=== PATIENT | female | born 1955 | race African-American/Black ===

== ENCOUNTER 2016-10-19 23:39 | Inpatient (IN) | payer OTHER ==
[~2016-10-19] VITALS: Ht 165.1 cm; Wt 68.0 kg
[2016-10-19 23:45] VITALS: BP 150/85
--- NOTE | 2016-10-20 00:54 | NUR ---
PT TAKEN TO BED 7
--- NOTE | 2016-10-20 00:57 | NUR ---
Dr. Blanchard evaluating patient at bedside.
[2016-10-20] MEDS ORDERED: NACL 0.9% 1,000 ML IV ONE ×2 (01:00→02:30)
[2016-10-20] MEDS ORDERED: KETOROLAC 30 MG/ML VIAL IVP ONE (01:00)
--- NOTE | 2016-10-20 01:05 | NUR ---
61/F c/o left flank pain radiating to left lower abdomen x2 days. Pt also reports hematuria x2 days. Pt sent from PMD office for further evaluation. Pt c/o 8/10 pain, sharp, constant pain. Denies N/V/D. AOX4, ambulatory with steady gait Denies injury or trauma. VSS.
--- NOTE | 2016-10-20 01:07 | NUR ---
PHLEB DRAWING LABS
[2016-10-20 01:14] LABS: HEMATOCRIT 38.8 % (36-48); HEMOGLOBIN 12.2 g/dL (12.0-16.0); MEAN CORPUSCULAR HEMOGLOBIN 23 pg (27-31); MEAN CORPUSCULAR HGB CONC 32 g/dL (33-37); MEAN CORPUSCULAR VOLUME 74 fL (80-94); PLATELET COUNT (AUTO) 379 K/uL (140-450); RED BLOOD CELL COUNT(AUTO) 5.25 MIL/uL (4.20-5.40); RED CELL DISTRIBUTION WIDTH 14.1 % (11.6-13.7)
--- NOTE | 2016-10-20 01:15 | NUR ---
Warm blanket provided. Dimmed lights. All needs addressed. VSS.
[2016-10-20 01:16] LABS: APPEARANCE,URINE CLEAR (CLEAR); BILIRUBIN,URINE NEGATIVE (NEGATIVE); BLOOD, URINE 3+ (NEGATIVE); COLOR,URINE YELLOW (YELLOW); LEUKOCYTE ESTERASE ,URINE NEGATIVE (NEGATIVE); NITRITE, URINE NEGATIVE (NEGATIVE); PROTEIN,URINE NEGATIVE (NEGATIVE); UGLUCOSE NEGATIVE (NEGATIVE); UROBILINOGEN,URINE 0.2 EU/dL (0.2 - 1)
--- NOTE | 2016-10-20 01:26 | NUR ---
Pt taken to CT via w/c.
[2016-10-20 01:27] LABS: ANION GAP 13.7 (8-16); CALCIUM 9.3 mg/dL (8.5-10.1); CREATININE 1.6 mg/dL (0.6-1.3); POTASSIUM 3.7 mmol/L (3.5-5.1)
[2016-10-20 01:27] LABS: BACTERIA,URINE FEW /HPF (None Seen); MUCUS,URINE 4+ /LPF (None Seen); WBC,URINE 0-5 (RARE) /HPF (0-5)
[2016-10-20] MEDS ORDERED: MORPHINE SULFATE 4 MG/ML SYR IVP ONE ×2 (01:30→02:15)
[2016-10-20 01:31] LABS: WHITE BLOOD COUNT (AUTO) 15.1 K/uL (4.8-10.8)
[2016-10-20 01:32] LABS: BAND % (MANUAL) 6 % (0-8); LYMPHOCYTES % (MANUAL) 5 % (20-46); MONOCYTES % (MANUAL) 2 % (5-12); NEUTROPHILS % (MANUAL) 87 (43-65)
[2016-10-20 01:35] LABS: TOTAL BILIRUBIN 0.2 mg/dL (0.0-1.0); TOTAL PROTEIN, SERUM 8.7 g/dL (6.4-8.2)
--- NOTE | 2016-10-20 01:42 | NUR ---
Pt back from CT, ambulated to restroom.
--- NOTE | 2016-10-20 02:16 | NUR ---
Pt c/o returning pain. Dr. Blanchard made aware.
[2016-10-20] MEDS ORDERED: AMLO5TAB PO (02:20)
[2016-10-20] MEDS ORDERED: ESTR1TAB19 PO (02:20)
--- NOTE | 2016-10-20 02:53 | NUR ---
Patient will be admitted to care of Dr. Black. Admited to Med/Surg. Will go to room 112-A. Belongings list completed. Report to Radha DHILLON.
[2016-10-20] MEDS: NACL 0.9% 1,000 ML IV SCH ×2 (02:57→10:55)
[2016-10-20] MEDS ORDERED: MORPHINE SULFATE 4 MG/ML SYR IVP PRN (03:00)
[2016-10-20] MEDS ORDERED: LORazepam 2 MG/ML VIAL IVP PRN (03:00)
[2016-10-20] MEDS ORDERED: ONDANSETRON 4 MG/2 ML VIAL IVP PRN (03:00)
[2016-10-20] MEDS ORDERED: MORPHINE SULFATE 2 MG/ML SYR IVP PRN (03:00)
[2016-10-20] MEDS ORDERED: ACETAMINOPHEN 325 MG TAB PO PRN (03:00)
--- NOTE | 2016-10-20 03:04 | NUR ---
RECEIVED FROM ER PER WHEELCHAIR AWAKE AND ALERT. NO SOB. DENIES PAIN AT THIS TIME. DX. OF KIDNEY STONES. WITH RH #22 IVF SITE. PATENT AND NO INFILTRATION. PT. CARE PLANS DISCUSSED WITH PT AND CALL LIGHT DISCUSSED WITH HER. SKIN INTACT AND NO EDEMA NOTED. RAPID RESPONSE MECHANISM EXPLAINED TO PT. ABLE TO WALK INDEPENDENTLY. ROM X 4. AFEBRILE.
[2016-10-20 03:05] VITALS: BP 133/72
[2016-10-20] MEDS ORDERED: cefTRIAXone 1,000 MG VIAL ONE ×2 (04:02)
--- NOTE | 2016-10-20 04:10 | NUR ---
ROCEPHIN 1000 MG IVP GIVEN ORDERED PER PIGGY BACK RT LEUKOCYTOSIS. PT. MADE AWARE OF IT. NO COMPLAINTS DONE.
--- NOTE | 2016-10-20 06:28 | NUR ---
PT. SLEEPING STILL AT THIS TIME. NO COMPLAINTS OF ANY PAIN THIS SHIFT. CALL LIGHT WITH IN REACH. INDEPENDENT.
--- NOTE | 2016-10-20 07:25 | NUR ---
ENDORSED TO THE AM RN FOR CONTINUITY OF CARE. SLEEPING BUT WAKE UP EASILY WHEN TOUCHED OR CALLED BY NAME.
--- NOTE | 2016-10-20 07:26 | NUR ---
RECEIVED PT REPORT FROM PRICING/SIGNAGE TEAM MEMBER NURSE AT BEDSIDE FOR CONTINUITY OF CARE. INTRODUCED SELF TO PT AND UPDATED BOARD. PT IS AWAKE AND ORIENTED. VS: WNL. PT GOT UP TO USE THE BATHROOM. DENIES PAIN AT THIS TIME. WILL RETURN TO PT'S ROOM WITH MORNING MEDS AND CONTINUE TO MONITOR.
[2016-10-20 08:00] VITALS: BP 131/86
--- NOTE | 2016-10-20 08:09 | NUR ---
PATIENT HAS BEEN SCREENED AND CATEGORIZED MODERATE NUTRITION RISK. PATIENT WILL BE SEEN WITHIN 3-5 DAYS OF ADMISSION. 10/22/16-10/24/[address]
[2016-10-20] MEDS ORDERED: ENOXAPARIN 40 MG/0.4 ML SYR SUBQ SCH (09:00)
[2016-10-20] MEDS ORDERED: ESTRADIOL 1 MG TAB PO SCH (09:00)
[2016-10-20] MEDS ORDERED: amLODIPine 5 MG TAB PO SCH (09:00)
--- NOTE | 2016-10-20 09:10 | NUR ---
ADMINISTERED SCHEDULED MEDS TO PT. TOLERATED WELL. PT IS AWAKE AND SITTING UP FOR BREAKFAST IN BED. DENIES PAIN AT THIS TIME. IV IS RUNNING ON RIGHT HAND 22G NS AT 100ML/HR. NO COMPLAINTS AT THIS TIME. WILL CONTINUE TO MONITOR PT AND ASSESS FOR ANY PAIN.
[2016-10-20] MEDS ORDERED: ACET-5629 PO (09:11)
[2016-10-20] MEDS ORDERED: ACET-1182 PO (09:11)
[2016-10-20] MEDS ORDERED: CEPH250C16 PO (09:12)
--- NOTE | 2016-10-20 10:55 | NUR ---
PT FAMILY AT BEDSIDE. CHANGED IV BAG OF NS. RUNNING AT 100ML/HR IN R HAND, FLUSHED WITH NS. PT DENIES PAIN AT THIS TIME. WILL CONTINUE TO MONITOR FOR SIGNS OF DISTRESS AND PAIN.
--- NOTE | 2016-10-20 11:14 | NUR ---
CM NOTE PER BALBIR Allred COVERING FOR LICENSED PROFESSIONAL COUNSELOR [place]ON[place], REVIEWS SHOULD ONLY BE SENT TO [facility]. FAXED INITIAL REVIEW TO [facility] [phone] LESVIA JAMES [phone]
--- NOTE | 2016-10-20 12:07 | NUR ---
PT FAMILY AT BEDSIDE. PT GOT UP TO USE BATHROOM. PT VOIDED AND URINE SAMPLE COLLECTED. PT'S PAIN WAS 5/10 FLANK AREA. MEDICATED WITH MORPHINE. WILL BE BACK TO REASSESS FOR PAIN RELIEF. PT IS SITTING UP IN BED AND EATING LUNCH. REGULAR DIET. WILL CONTINUE TO MONITOR.
--- NOTE | 2016-10-20 16:00 | NUR ---
PT IS RESTING COMFORTABLY IN BED. PT DENIES PAIN. VS: WNL. PT REQUESTED SALAD, CALLED [facility] AND LEFT MESSAGE TO SEND SALAD TO PT'S ROOM. PT HAS NO OTHER COMPLAINTS AT THIS TIME.
[2016-10-20 16:06] VITALS: BP 112/68
--- NOTE | 2016-10-20 16:38 | NUR ---
JACOB FROM [facility] CALLED. SCHEDULED PT FOR A UROLOGIST APPT W/ DR. PRADO FOR TOMORROW AT 1:15PM. ADDRESS: [address] [place] [id number] . PT NEED TO BRING ID CARD, INS, AND MED LIST. WILL START D/C.
[2016-10-20] MEDS ORDERED: ONDA4ODT1 SL (17:10)
--- NOTE | 2016-10-20 17:10 | NUR ---
PT REQUEST PAIN MED. STATED PAIN WAS 3/10 ON HER LOWER BACK. ADMINISTERED TYLENOL FOR MILD PAIN.
--- NOTE | 2016-10-20 17:30 | NUR ---
PROVIDED PT WITH DISCHARGE INSTRUCTIONS. INFORMED PT OF F/U WITH PCP IN 1-2 WEEKS AND APPOINTMENT WITH UROLOGIST TOMORROW. PT VERBALIZED UNDERSTANDING. REMOVED IV CATHETER. TIP INTACT. APPLIED PRESSURE TO SITE, NO SIGNS OF BLEEDING. REMOVED ID BAND. PT IS AWAITING FOR TO MOBILITY SCOOTER REPAIRER.
--- NOTE | 2016-10-20 18:35 | NUR ---
WHEELED PT OUT TO THE LOBBY. WENT AHEAD TO GET THE CAR. PT HAS ALL HER PERSONAL BELONGINGS WITH HER. PT IS IN STABLE CONDITION.
== END 2016-10-20 18:35 | disposition home or self-care (01) | DRG 872 ==
LOC: MED 23:39 → MTU 10-20 03:02
PROVIDERS: ADMIT Hospitalist; ATTEND Hospitalist
DX: A41.9 Sepsis, unspecified organism (principal); I10 Essential (primary) hypertension; N13.2 Hydronephrosis with renal and ureteral calculous obstruction; N39.0 Urinary tract infection, site not specified; Z90.710 Acquired absence of both cervix and uterus
CPT/HCPCS: 36415; 80053; 81001; 85025; 87081; 87086; J0696; J1650; J1885; J2270; J7030; J7060